=== PATIENT | female | born 1995 | race Caucasian/White ===

== ENCOUNTER → 2016-09-18 | Outpatient (CLI) | payer BC ==
[~2016-09-18] MED LIST: PRENATAL1 TA1 PO
--- NOTE | ~2016-09-18 | US6 ---
[facility] A Service of [facility] RADIOLOGY TEXT RESULTS PATIENT: JAYME DEWITT LOCATION: [facility] : [birth year] UNIT #: [id number] AGE: [address]: Indy Wilson SEX: F ORDER DR: [id number] [address] [id number] O MR#: [id number] Acc #: [id number] NAME: JAYME DEWITT : 1995 SEX: F STUDY DATE/TIME: 09/18/2016 9:32 UNIT: [facility] ROOM: STUDY DESCRIPTION: US Abdominal Limited Attending Physician: Indy Wilson A.P.R.N. Referring Physician: Indy Wilson A.P.R.N. Ordering Physician: Indy Wilson A.P.R.N. Primary Care Physician: Indy Wilson A.P.R.N. MEDICAL IMAGING REPORT This report is preliminary unless electronic signature is present. EXAM Right upper quadrant ultrasound, 09/18/16. INDICATION 20-year-old female with epigastric pain, right upper quadrant pain for 2-3 years. Nausea 2-3 years. TECHNIQUE Sonographic imaging of the right upper quadrant was performed. COMPARISONS 01/09/16 FINDINGS Visualized aspects of the pancreas are unremarkable. Portions were obscured by bowel gas and not seen or evaluated. Survey images of the liver demonstrate no focal mass, ascites or intrahepatic ductal dilatation. Liver measures 14.3 cm long axis. Right kidney is nonobstructed measuring 10.5 cm long axis. The gallbladder is sonographically unremarkable. No sonographic Navarro's sign was described. Extrahepatic common bile duct measures 4 mm. IMPRESSION 1. Negative right upper quadrant ultrasound. Dictated by... Brendan Pak M.D. THIS IS AN ELECTRONICALLY VERIFIED REPORT Brendan Pak M.D. at 09/21/2016 2:08 PM SHAHBAZ/smita [facility] A Service of [facility] RADIOLOGY TEXT RESULTS PATIENT: JAYME DEWITT LOCATION: [facility] #: [id number] : [birth year] UNIT #: [id number] AGE: [address]: Indy Wilson SEX: F ORDER DR: TD: 09/18/2016 19:21 JOB #: [id number] MEDICAL IMAGING REPORT Page 1 of 1
== END | disposition home or self-care (01) ==
LOC: SGUS 09-08 09:30
DX: R10.13 Epigastric pain (principal)
CPT/HCPCS: 76705